=== PATIENT | female | born 1960 | race Caucasian/White ===

== ENCOUNTER → 2021-05-07 | Outpatient (CLI) | payer SELFPAY ==
[2021-05-10 16:11] LABS: HPV 16 Negative (Negative); HPV 18 Negative (Negative); HPV OTHER HR TYPES Negative (Negative)
== END | disposition home or self-care (01) ==
LOC: LAB SHORT 11:04
PROVIDERS: Family Medicine
DX: Z12.4 Encounter for screening for malignant neoplasm of cervix (principal); N84.1 Polyp of cervix uteri
CPT/HCPCS: 87624; 88305; G0123

== ENCOUNTER 2021-09-10 08:46 | Day surgery (SDC) | payer OTHER ==
[~2021-09-10] VITALS: Ht 157.5 cm; Wt 70.8 kg
[~2021-09-10 08:46] MED LIST: ATOR40TA PO; ESCI20 PO
[2021-09-10] MEDS ORDERED: FLONASE ALLERG9.9 M2 (09:08)
[2021-09-10] MEDS ORDERED: ZYRTEC10 M4 PO (09:09)
--- NOTE | 2021-09-10 13:54 | NUR ---
PT RESTING COMFORTABLY IN BED. RESPONDS TO VERBAL STIMULI AND TOUCH. VITALS STABLE. PT AXOX4, ABLE TO REPOSITION SELF IN BED.
--- NOTE | 2021-09-10 14:17 | NUR ---
PT TOLERATING PO FLUIDS AND FOOD, VISITING WITH SISTER AT BEDSIDE. PT HAS THREE INCISION SITES ON ABDOMEN ALL COVERED IN DERMABOND THAT IS CDI. NO DRAINAGE, BLEEDING, SWELLING, INFLAMMATION, REDNESS NOTED.
--- NOTE | 2021-09-10 14:41 | NUR ---
Patient up to Ambulate independently. Gait steady. Discharge instructions reviewed with patient. Patient verbalizes understanding. Copy given to patient to take home. Dressings to procedure site clean, dry, intact with no visible drainage, swelling, erythema or bruising noted. Patient States Post-Procedure ride home has been arranged. Discharged via wheelchair to private car for ride home. ALL BELONGINGS RETURNED TO PATIENT.
== END 2021-09-10 23:04 | disposition home or self-care (01) ==
LOC: ORSCMMR 08:46 → ORD 10:00 → ORSCMMR 23:04
PROVIDERS: Surgery
PROC: 8E0W4CZ Robotic Assisted Procedure of Trunk Region, Percutaneous Endoscopic Approach (ICD-10-PCS; principal; 2021-09-10 10:00)
PROC: 0YU64JZ Supplement Left Inguinal Region with Synthetic Substitute, Percutaneous Endoscopic Approach (ICD-10-PCS; principal; 2021-09-10 10:00)
DX: K40.90 Unilateral inguinal hernia, without obstruction or gangrene, not specified as recurrent (principal); F17.210 Nicotine dependence, cigarettes, uncomplicated; G47.33 Obstructive sleep apnea (adult) (pediatric); Z79.899 Other long term (current) drug therapy
CPT/HCPCS: 49650; S2900; A9270; C1781; J0690; J2250; J2704; J2710; J3010; J7120

== ENCOUNTER 2023-01-20 06:15 | Day surgery (SDC) | payer OTHER ==
[2023-01-20] VITALS (16 sets, daily range): BP systolic 98–124; BP diastolic 60–82
[~2023-01-20] VITALS: Ht 162.6 cm; Wt 65.4 kg
[~2023-01-20 06:15] MED LIST changes: +FLONASE ALLERG9.9 M2; +MONT10T PO; +ZYRTEC10 M4 PO
[2023-01-20] MEDS ORDERED: ALBU90OI INH (06:31)
--- NOTE | 2023-01-20 07:23 | NUR ---
PRE-OP NOTE PT A&OX4, BREATHING RA, NO COMPLAINTS, AT BEDSIDE. [facility], ALL OTHER BELONGINGS IN BAG UNDER STRETCHER. Patient confirms NPO status and agrees with scheduled surgery. Pre-Op teaching done. Pt verbalizes understanding. Patient States Post-Procedure ride home has been arranged.
--- NOTE | 2023-01-20 13:18 | NUR ---
Discharge instructions reviewed with patient. Patient verbalizes understanding. Copy given to patient to take home. SURGICAL GLUE X3 SITES TO ABD C/D/I, ICE PACK PROVIDED. PT SLEEPY BUT AWAKENS AND FOLLOWS DIRECTIONS, DENIES PAIN. PT HAS PAIN PILL RX, PT DRESSED IN W/C FOR DC HOME. UP STEADY ON FEET. Discharged via wheelchair to private car for ride home.
== END 2023-01-20 13:22 | disposition home or self-care (01) ==
LOC: ORSCMMR 06:15 → ORD 07:30 → ORSCMMR 13:22
PROVIDERS: Surgery
PROC: 8E0W4CZ Robotic Assisted Procedure of Trunk Region, Percutaneous Endoscopic Approach (ICD-10-PCS; principal; 2023-01-20 07:30)
PROC: 0YU64JZ Supplement Left Inguinal Region with Synthetic Substitute, Percutaneous Endoscopic Approach (ICD-10-PCS; principal; 2023-01-20 07:30)
DX: K40.90 Unilateral inguinal hernia, without obstruction or gangrene, not specified as recurrent (principal); F32.A Depression, unspecified; F41.1 Generalized anxiety disorder; G47.30 Sleep apnea, unspecified; E78.5 Hyperlipidemia, unspecified; E66.9 Obesity, unspecified; Z68.24 Body mass index [BMI] 24.0-24.9, adult; F17.210 Nicotine dependence, cigarettes, uncomplicated; Z79.899 Other long term (current) drug therapy
CPT/HCPCS: 49651; S2900; C1781; J0690; J1100; J1170; J1885; J2250; J2371; J2405; J2704; J3010; J7120

== ENCOUNTER 2023-04-04 09:59 | Emergency (ER) | payer OTHER ==
[~2023-04-04] VITALS: Ht 160 cm; Wt 63.0 kg
[~2023-04-04 09:59] MED LIST changes: +ALBU90OI INH
[2023-04-04 11:20] VITALS: BP 152/82
== END 2023-04-04 11:20 | disposition home or self-care (01) ==
LOC: ER 09:59
DX: S06.0X0A Concussion without loss of consciousness, initial encounter (principal); W01.0XXA Fall on same level from slipping, tripping and stumbling without subsequent striking against object, initial encounter; Z88.8 Allergy status to other drugs, medicaments and biological substances; Z79.899 Other long term (current) drug therapy
CPT/HCPCS: 70450; 99283-25

== ENCOUNTER → 2024-01-29 | Outpatient (CLI) | payer OTHER | END | disposition home or self-care (01) | LOC: LAB SHORT 08:15 → LAB 08:15 | DX: D49.2 Neoplasm of unspecified behavior of bone, soft tissue, and skin (principal); L90.5 Scar conditions and fibrosis of skin; M79.89 Other specified soft tissue disorders | CPT/HCPCS: 88305 ==

== ENCOUNTER → 2024-06-28 | Outpatient (CLI) | payer OTHER ==
[2024-06-28 17:35] LABS: BASOPHILS ABSOLUTE AUTO 0.04 K/mm3 (0.00-0.23); BASOPHILS PERCENT AUTO 1 % (0-2); EOSINOPHILS PERCENT AUTO 2 % (0-6); Hematocrit 43.2 % (33.0-51.0); Hemoglobin 14.1 g/dL (11.5-16.0); IMMATURE GRAN ABSOLUTE AUTO 0.01 K/mm3 (0.00-0.10); IMMATURE GRAN PERCENT AUTO 0 % (0-1); LYMPHOCYTES ABSOLUTE AUTO 1.11 K/mm3 (0.84-5.20); LYMPHOCYTES PERCENT AUTO 22 % (21-46); MONOCYTES ABSOLUTE AUTO 0.42 K/mm3 (0.16-1.47); MONOCYTES PERCENT AUTO 8 % (4-13); Mean Corpuscular HGB 33.7 pg (26.0-34.0); Mean Corpuscular HGB Conc 32.6 g/dL (31.5-36.5); Mean Corpuscular Volume 103 fL (80-100); Mean Platelet Volume 10.3 fL (9.1-12.4); NEUTROPHILS ABSOLUTE AUTO 3.43 K/mm3 (1.96-9.15); NEUTROPHILS PERCENT AUTO 67 % (41-73); Platelet Count 187 K/mm3 (150-400); RDW Coefficient Variation 11.6 % (11.7-14.2); RDW Standard Deviation 43.8 fL (35.1-46.3); Red Blood Cell Count 4.19 M/mm3 (3.80-5.20); White Blood Cell Count 5.11 K/mm3 (4.00-11.30)
[2024-06-28 18:33] LABS: Alanine Aminotransfer (ALT/SGP 39 U/L (12-78); Albumin, Blood 3.6 g/dL (3.4-5.0); Albumin/Globulin Ratio 1.2 (0.8-1.8); Alk Phos 91 U/L (50-136); Anion Gap 7 mmol/L (3-11); Aspartate Aminotrans (AST/SGOT 39 U/L (12-37); Bilirubin, Total 0.3 mg/dL (0.1-1.0); Blood Urea Nitrogen 15 mg/dL (8-24); Bun/Creatinine Ratio 27.1 (12.0-20.0); CO2, Blood 31 mmol/L (21-32); Calcium, Blood 9.7 mg/dL (8.5-10.1); Chloride, Blood 106 mmol/L (98-108); Cholesterol 262 mg/dL (50-200); Creatinine, Blood 0.55 mg/dL (0.40-1.00); Glomerular Filtration Rate 103 (60-); Glucose, Blood 101 mg/dL (70-99); HDL Cholesterol 88 mg/dL (>39); LDL/HDL RATIO 1.4; Low Density Lipoprotein Chol 124 mg/dL (0-110); Potassium, Blood 4.2 mmol/L (3.5-5.5); Sodium, Blood 140 mmol/L (136-145); Total Protein, Blood 6.6 g/dL (6.4-8.2); Triglycerides 251 mg/dL (30-160); Very Low Density Lipoprot Chol 50 mg/dL (6-32)
== END ==
LOC: LAB SHORT 16:18 → LAB 16:18
PROVIDERS: Family Medicine
DX: F10.20 Alcohol dependence, uncomplicated (principal)
CPT/HCPCS: 80053; 80061; 85025